=== PATIENT | female | born 1965 | race Caucasian/White ===

== ENCOUNTER 2019-01-19 13:04 | Inpatient (IN) | payer BC ==
[~2019-01-19] VITALS: Ht 157.5 cm; Wt 48.5 kg
[2019-01-19 13:13] VITALS: Ht 157.5 cm; Wt 48.5 kg
[2019-01-19 13:54] LABS: BASOPHIL % 0.2 % (0-2); PLATELET COUNT 244 x10^3mcL (130-400); RED CELL DISTRIBUTION WIDTH 13.8 % (11.5-14.5)
[2019-01-19 14:16] LABS: CALCIUM 8.8 mg/dL (8.5-10.1); CARBON DIOXIDE 29.1 mmol/L (21-32); CHLORIDE SERUM 104 mmol/L (98-107); CREATININE SERUM 0.7 mg/dL (0.6-1.0); GFR1 > 60 mL/min; GLUCOSE SERUM 123 mg/dL (74-106); POTASSIUM SERUM 3.6 mmol/L (3.5-5.1); SODIUM SERUM 140 mmol/L (136-145)
[2019-01-19 14:21] LABS: ALBUMIN 4.1 g/dL (3.4-5.0); ALKALINE PHOSPHATASE 131 U/L (46-116); ALT/SGPT 62 U/L (14-59); AST/SGOT 99 U/L (15-37); BILIRUBIN TOTAL 1.35 mg/dL (0.20-1.00); TOTAL PROTEIN, SERUM 7.7 g/dL (6.4-8.2)
[2019-01-19 16:19] LABS: CHOLESTEROL/HDL RATIO 2.6; PHOSPHOROUS 3.3 mg/dL (2.5-4.9)
[2019-01-19 16:40] VITALS: BP 139/69
[2019-01-19 20:42] VITALS: BP 113/44
[2019-01-20 04:58] VITALS: BP 96/40
[2019-01-20 06:38] LABS: BASOPHIL % 0.3 % (0-2); PLATELET COUNT 199 x10^3mcL (130-400); RED CELL DISTRIBUTION WIDTH 13.9 % (11.5-14.5)
[2019-01-20 06:58] LABS: CALCIUM 8.7 mg/dL (8.5-10.1); CARBON DIOXIDE 28.2 mmol/L (21-32); CHLORIDE SERUM 106 mmol/L (98-107); CREATININE SERUM 0.6 mg/dL (0.6-1.0); GFR1 > 60 mL/min; GLUCOSE SERUM 90 mg/dL (74-106); MAGNESIUM 2.1 mg/dL (1.8-2.4); PHOSPHOROUS 4.1 mg/dL (2.5-4.9); POTASSIUM SERUM 3.8 mmol/L (3.5-5.1); SODIUM SERUM 141 mmol/L (136-145)
[2019-01-20 08:05] VITALS: BP 111/66
[2019-01-20 15:13] VITALS: BP 128/76
[2019-01-20 16:43] VITALS: BP 106/52
[2019-01-20 17:49] VITALS: BP 110/58
[2019-01-20] MEDS ORDERED: METOPROLOL SUCC25 M2 PO (18:07)
[2019-01-20] MEDS ORDERED: TOPROL XL25 MG PO (18:13)
== END 2019-01-20 18:47 | disposition home or self-care (01) | DRG 206 ==
LOC: ED 13:04 → DU 15:35 → MU 01-20 17:08
PROVIDERS: Emergency Medicine; ADMIT Internal Medicine
DX: M94.0 Chondrocostal junction syndrome [Tietze] (principal); R74.0 Nonspecific elevation of levels of transaminase and lactic acid dehydrogenase [LDH]; G35 Multiple sclerosis; I49.3 Ventricular premature depolarization; Z90.49 Acquired absence of other specified parts of digestive tract; Z90.89 Acquired absence of other organs; Z82.49 Family history of ischemic heart disease and other diseases of the circulatory system; Z23 Encounter for immunization
CPT/HCPCS: 83880; 90658; C9113; G0378; Q0092